=== PATIENT | male | born 1990 | race Hispanic/Latino ===

== ENCOUNTER 2016-09-02 13:07 | Emergency (ER) | payer BC ==
[2016-09-02 13:13] VITALS: TEMP 97.6; BMI 27.6
[2016-09-02] MEDS ORDERED: Sodium Chloride 0.9% 1,000 ML IV STA (13:32)
[2016-09-02] MEDS ORDERED: Morphine 4 mg/ml ISec IVP STA (13:33)
[2016-09-02] MEDS ORDERED: DiphenhydrAMINE 50 mg/ml Inj IVP STA (13:33)
--- NOTE | 2016-09-02 13:49 | ED PDOC ---
Arrival/HPI - General Chief Complaint: Headache Time Seen by Provider: 09/02/16 13:32 - History of Present Illness Narrative History of Present Illness (Text): 09/02/16 13:46 26-year-old male with history of migraines, presents emergency Department with a migraine which started last night. Patient states that this feels identical to his previous migraine symptoms. Patient reports some sensitivity to light. States that headache is slow in onset, not sudden or thunderclap. Says it is not posterior and is not the worse headache of his life. Denies any other complaints. Says that he has no neck or back pain, denies fevers or chills. Says that he took Excedrin earlier with no relief. Past Medical History - Provider Review Nursing Documentation Reviewed: Yes - Infectious Disease Hx of Infectious Diseases: None - Tetanus Immunization Tetanus Immunization: Up to Date - Past Medical History Past Medical History: No Previous - Cardiac Hx Cardiac Disorders: No - Pulmonary Hx Respiratory Disorders: No - Neurological Hx Migraine: Yes - HEENT Hx HEENT Disorder: No - Renal Hx Renal Disorder: No - Endocrine/Metabolic Hx Endocrine Disorders: No - Hematological/Oncological Hx Blood Disorders: No - Integumentary Hx Dermatological Disorder: No - Musculoskeletal/Rheumatological Hx Musculoskeletal Disorders: No - Gastrointestinal Hx Gastrointestinal Disorders: No - Genitourinary/Gynecological Hx Genitourinary Disorders: No - Psychiatric Hx Psychophysiologic Disorder: No Hx Depression: No Hx Emotional Abuse: No Hx Physical Abuse: No Hx Substance Use: No - Past Surgical History Past Surgical History: No Previous - Suicidal Assessment Feels Threatened In Home Enviroment: No Family/Social History Family/Social History: Unknown Family HX Smoking Status: Heavy Smoker > 10 Cigarettes Daily Hx Alcohol Use: Yes Frequency of alcohol use: Socially Hx Substance Use: No Hx Substance Use Treatment: No Allergies/Home Meds Allergies/Adverse Reactions: Allergies No Known Allergies Allergy (Verified 09/02/16 13:27) Home Medications: Home Meds Medication Instructions Recorded Confirmed No Known Home Med 09/02/16 09/02/16 Physical Exam - Physical Exam Narrative Physical Exam (Text): 09/02/16 13:48 - Review of Systems Constitutional: Normal. absent: Fatigue, Weight Change, Fevers Eyes: Normal ENT: denies sore throat, denies tristhmus Respiratory: Normal. absent: SOB, Cough, Sputum Cardiovascular: absent: Chest Pain, Palpitations, Syncope Gastrointestinal: Normal. absent: Abdominal Pain, Diarrhea, Nausea, Vomiting Genitourinary: Normal. absent: Dysuria, Frequency, Hematuria Musculoskeletal: Normal. absent: Arthralgias, Back Pain, Neck Pain Skin: no rashes, no erythema Neurological: Headache absent: Focal Weakness Endocrine: Normal Hemo/Lymphatic: Normal Psychiatric: No suicidal or homicidal ideations Physical exam Patient appears age appropriate in no distress, speaking full sentences without difficulty - Systems Exam Head: Present: Atraumatic, Normocephalic Pupils: Present: PERRL Extroacular Muscles: Present: EOMI Conjunctiva: Present: Normal Mouth: Present: Moist Mucous Membranes Neck: Present: Normal Range of Motion. No: MIDLINE TENDERNESS, Paraspinal Tenderness Respiratory/Chest: Present: Clear to Auscultation, Good Air Exchange. No: Respiratory Distress, Accessory Muscle Use, Tachypneic Cardiovascular: Present: Regular Rate and Rhythm, Normal S1, S2, Peripheal Pulses Present. No: Murmurs Abdomen: Present: Normal Bowel Sounds. No: Tenderness, Distention, Peritoneal Signs, Rebound, Guarding Back: Present: Normal Inspection. No: Midline Tenderness, Paraspinal Tenderness Upper Extremity: Present: Normal Inspection. No: Cyanosis, Edema Lower Extremity: Present: Normal Inspection. No: Edema Neurological: Present: GCS=15, Speech Normal, cranial nerves II through XII fully intact with no cerebellar abnormality, neurosensory fully intact. No focal neurological deficits. Skin: Present: Warm, Dry, Normal Color. No: Rashes Lymphatic: Present: OX3, NI, NC Psychiatric: Present: Alert, Oriented x 3, Normal Insight, Normal Concentration Vital Signs Reviewed: Yes Vital Signs Temp Pulse Resp BP Pulse Ox 09/02/16 14:15 75 18 151/87 H 100 09/02/16 13:12 97.6 F 77 18 140/83 99 Temperature: Afebrile Blood Pressure: Normal Pulse: Regular Respiratory Rate: Normal Appearance: Positive for: Well-Appearing Pain Distress: None Mental Status: Positive for: Alert and Oriented X 3 Medical Decision Making ED Course and Treatment: 09/02/16 13:49 Patient with a history of migraines, states this headache feels identical to his previous migraine symptoms. No focal neurological deficits on examination Medications ordered Will reevaluate 05/29/17 15:17 On reevaluation, patient reports full symptomatically. States that his headache has resolved and he feels much better. Did not have any morphine. Ambulates with steady gait with no focal neurological deficits on examination. Patient states that he feels comfortable being discharged home with outpatient follow-up. Pt states he understands to return to the ER right away for new or worsening symptoms or for inability to f/u with PMD or specialist as instructed. Patient states that he fully agrees with and understands discharge instructions. States that he agrees with the plan and disposition. Verbalized and repeated discharge instructions and plan. I have given the patient opportunity to ask any additional questions. - Medication Orders Current Medication Orders: Discontinued Medications Acetaminophen (Tylenol 325mg Tab) 975 mg PO STAT STA Stop: 09/02/16 13:34 Last Admin: 09/02/16 14:20 Dose: Not Given Non-Admin Reason: Patient Refused Diphenhydramine HCl (Benadryl) 50 mg IVP STAT STA Stop: 09/02/16 13:34 Last Admin: 09/02/16 14:05 Dose: 50 mg Sodium Chloride (Sodium Chloride 0.9%) 1,000 mls @ 1,000 mls/hr IV .Q1H STA Stop: 09/02/16 14:31 Last Admin: 09/02/16 14:00 Dose: 1,000 mls/hr Ketorolac Tromethamine (Toradol) 30 mg IVP STAT STA Stop: 09/02/16 13:33 Last Admin: 09/02/16 14:19 Dose: Not Given Non-Admin Reason: Patient Refused Metoclopramide HCl (Reglan) 10 mg IVP STAT STA Stop: 09/02/16 13:34 Last Admin: 09/02/16 14:01 Dose: 10 mg Morphine Sulfate (Morphine) 4 mg IVP STAT STA Stop: 09/02/16 13:34 Last Admin: 09/02/16 14:19 Dose: Not Given Non-Admin Reason: Patient Refused Disposition/Present on Arrival - Present on Arrival Any Indicators Present on Arrival: No History of DVT/PE: No History of Uncontrolled Diabetes: No Urinary Catheter: No History of Decub. Ulcer: No History Surgical Site Infection Following: None - Disposition Have Diagnosis and Disposition been Completed?: Yes Diagnosis: Headache Disposition: HOME/ ROUTINE Disposition Time: 15:18 Patient Plan: Discharge Condition: GOOD Discharge Instructions (ExitCare): General Headache (ED) Additional Instructions: PLEASE RETURN TO THE EMERGENCY DEPARTMENT FOR NEW OR WORSENING SYMPTOMS. RETURN RIGHT AWAY IF YOU CANNOT FOLLOW UP WITH YOUR PRIMARY CARE DOCTOR, CLINIC, OR SPECIALIST IN 1-2 DAYS. Prescriptions: Aspirin/Acetaminophen/Caffeine [Excedrin Migraine Caplet] 1 tab PO Q8 PRN #14 PRN Reason: Pain, Moderate (4-7) Referrals: PCP,NO [Primary Care Provider] - Follow up with primary Brigido Dozier MD [Staff Provider] - Follow up with primary Lance Dozier MD [Staff Provider] - Follow up with primary Forms: WORK NOTE
[2016-09-02 15:38] VITALS: BP 113/78; PULSE 62; RESP 16; O2SAT 98
== END 2016-09-02 15:38 | disposition home or self-care (01) ==
LOC: ED 13:07
DX: R51 Headache (principal)
CPT/HCPCS: 96361; 96374; 96375; 99285; J1200; J2765; J7040